=== PATIENT | female | born 1965 | race African-American/Black ===

== ENCOUNTER 2025-06-04 13:21 | Outpatient (CLI) | payer OTHER | END 2025-06-04 13:25 | disposition home or self-care (01) | LOC: SONOGRAMA 13:21 | PROVIDERS: ATTEND Otolaryngology Otology & Neurotology | DX: E04.1 Nontoxic single thyroid nodule (principal) ==

== ENCOUNTER 2025-06-20 11:05 | Emergency (ER) | payer OTHER ==
[~2025-06-20] VITALS: Ht 154.9 cm; Wt 83.9 kg
[2025-06-20] MEDS ORDERED: METFORMIN HCL500 M3 (11:46)
== END 2025-06-20 15:43 | disposition home or self-care (01) ==
LOC: ER 11:06
DX: S62.617A Displaced fracture of proximal phalanx of left little finger, initial encounter for closed fracture (principal); S60.042A Contusion of left ring finger without damage to nail, initial encounter; S60.022A Contusion of left index finger without damage to nail, initial encounter; W18.39XA Other fall on same level, initial encounter; Y93.89 Activity, other specified; Y92.89 Other specified places as the place of occurrence of the external cause; E11.9 Type 2 diabetes mellitus without complications; Z79.84 Long term (current) use of oral hypoglycemic drugs

== ENCOUNTER 2025-06-30 08:39 | Outpatient (CLI) | payer OTHER ==
[~2025-06-30 08:39] MED LIST: METFORMIN HCL500 M3
== END 2025-06-30 08:41 | disposition home or self-care (01) ==
LOC: SONOGRAMA 08:39
PROVIDERS: ATTEND Pathology Anatomic Pathology
DX: D34 Benign neoplasm of thyroid gland (principal); E07.89 Other specified disorders of thyroid; E04.2 Nontoxic multinodular goiter